=== PATIENT | male | born 1985 | race African-American/Black ===

== ENCOUNTER 2018-04-08 00:21 | Emergency (ER) | payer OTHER ==
[2018-04-08 00:45] VITALS: BP 113/75; PULSE 67; TEMP 98.1; BMI 23.5
[2018-04-08] MEDS ORDERED: CYCLOBENZAPRINE HCL 10 MG TABLET (FP) PO ONE (00:52)
[2018-04-08] MEDS ORDERED: KETOROLAC TROMETHAMINE 60 MG/2 ML VIAL IM ONE (00:52)
[2018-04-08] MEDS ORDERED: KETOROLAC TROMETHAMINE 60 MG/2 ML VIAL ONE (00:55)
[2018-04-08] MEDS ORDERED: CYCLOBENZAPRINE HCL 10 MG TABLET (FP) ONE (00:55)
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
== END 2018-04-08 01:23 | disposition home or self-care (01) ==
LOC: JER 00:21
PROC: 3E0233Z Introduction of Anti-inflammatory into Muscle, Percutaneous Approach (ICD-10-PCS; principal; 2018-04-08)
DX: S39.012A Strain of muscle, fascia and tendon of lower back, initial encounter (principal); V73.6XXA Passenger on bus injured in collision with car, pick-up truck or van in traffic accident, initial encounter; Y93.89 Activity, other specified; Y92.410 Unspecified street and highway as the place of occurrence of the external cause
CPT/HCPCS: 99281-25